=== PATIENT | female | born 1985 | race Caucasian/White ===

== ENCOUNTER 2024-06-16 16:17 | Emergency (ER) | payer OTHER, SELFPAY ==
--- NOTE | ~2024-06-16 | XR_ITS ---
EXAM: XR ankle RT min 3V, XR foot RT min 3V, XR foot LT min 3V, XR ankle LT min 3V DATE: 06/16/2024 16:52 HISTORY: Twist . COMPARISON: None available. FINDINGS: Normal mineralization. No fracture or dislocation. No lytic or blastic lesion. Joint space s are maintained. Mild plantar enthesopathy on the right. Minimal Achilles enthesopathy on the left. No erosion or periosteal change. Soft tissues within normal limits. IMPRESSION: No acute osseous finding in the bilateral ankles or feet. Reviewed, dictated and finalized at location K. IMPRESSION: No acute osseous finding in the bilateral ankles or feet. IMPRESSION: No acute osseous finding in the bilateral ankles or feet. IMPRESSION: No acute osseous finding in the bilateral ankles or feet.
--- OUTSIDE RECORDS SUMMARY | 2024-06-16 16:19 | XMS_ITS | Encounter Summary ---
Author Organization [facility] Address [address] [place] [address] Care Team Providers Care Erco Machine Operator Name Role Phone Mahogany Singh Primary Care Provider +1 [phone] Encounter Details Date Type Department Care Team (Late st Contact Info) Description 11/07/2023 SalesPortalt Message Enc [facility] Medical Group Family & Internal Medicine [facility] [address] [place] [address] Mahogany Singh APNP [address], [place] [phone] Anxiety Meds Social History Tobacco Use Types Packs/Day Years Used Date Smoking Tobacco: Never Smokeless Tobacco: Never Alcohol Use Standard Drinks/Week Comments Yes 0 (1 standard drink = 0.6 oz pur e alcohol) 0-1 times per month PHQ-2 Answer Date Recorded Patient Health Questionnaire-2 Score 0 11/01/2023 Comments No Sex and Gender Information Value Date Recorded Sex Assigned at Female 03/29/2024 8:51 AM ELECTRIC TRUCKER Legal Sex Female 6:12 PM CDT Gender Identity Not on file Sexual Orientation Not on file documented as of this encounter Progress Notes * MCKINLEY Thomason - 11/07/2023 12:49 PM CDT Sertraline sent over See me in one month * THELMA Ortiz - 11/07/2023 11:36 AM CDTFrom: Kristin Conner To: Mahogany Singh Sent: 11/07/2023 8:24 AM CDT Subject: Anxiety Meds Hi, I was prescribed Wellbutrin but thought more about it and would like to try Sertraline if that was an option for me with my current medications. I have not started taking the Wellbutrin yet. Thank you! documented in this encounter Plan of Treatment Upcoming Encounters Date Type Department Care Team (Late st Contact Info) Description 06/27/2024 9:40 AM CDT Office Visit [facility] Medical Group Family & Internal Medicine - [address] [address] Mahogany Singh APNP [address] [place] [address] documented as of this encounter Visit Diagnoses Diagnosis Anxiety- Primary Anxiety state, unspecified documented in this encounter Additional Health Concerns Assessment Noted Time PHQ-9 Depression Total Score: 0 01/19/20 7:40 AM ELECTRIC TRUCKER documented as of this encounter Care Teams Erco Machine Operator Relationship Specialty Start Date End Date Mahogany Singh APNP [address] [place] [address] PCP - General 01/15/23 documented as of this encounter
--- OUTSIDE RECORDS SUMMARY | 2024-06-16 16:19 | XMS_ITS | Clinical Summary ---
Author Organization [facility] Care Team Providers Care Animal Behaviourist Name Role Phone Unavailable Primary Care Provider Unavailabl e Social History Tobacco Use Types Packs/Day Years Used Date Smoking Tobacco: Never Assessed Comments Unknown Sex and Gender Information Value Date Recorded Sex Assigned at Not on file Legal Sex Female 12:44 PM PEDIATRIC SURGEON Gender Identity Not on file Sexual Orientation Not on file Plan of Treatment Health Maintenance Due Date Last Done Comments Hepatitis C Virus (HCV) Screening 1987 Hepatitis B Immunization (1 of 3 - 19+ 3-dose series) 06/04/2006 Pap Smear 06/04/2008 Cervical Cancer Screening (CCS) 06/04/2017 HPV/Cotest 06/04/2017 Influenza Immunization (#1) 11/05/202301/05, 12/13/2019, 12/07/2018, Additional history exists SARS-COV-2 Immunization (2023- season) 2023 09/28/2020, 09/04/2020 Respiratory Syncytial Virus (RSV) Immunization (Adult) (1 - 1-dose 75+ series) 06/04/2062 DTaP/Tdap/Td Immunization Discontinued 05/15/2014 TdaP Immunization Completed 05/15/2014 Meningococcal Immunization (ACWY) Aged Out No longer eligible based on patient's age to complete this topic Pneumococcal Immunization Combined Aged Out No longer eligible based on patient's age to complete this topic Rotavirus Immunization Aged Out No lo nger eligible based on patient's age to complete this topic
--- OUTSIDE RECORDS SUMMARY | 2024-06-16 16:19 | XMS_ITS | Clinical Summary ---
Author Organization [facility] Address [facility] [place] [address] Care Team Providers Care Driver Retraining Instructor Name Role Phone Mahogany Singh Primary Care Provider +1 [phone] Allergies No known active allergies Medications ISIBLOOM 0.15-30 MG-MCG tabletIndications :Dysmenorrhea Take 1 tablet by mouth daily. 84 tablet 1 02/02/20 23 Active ciclopirox (PENLAC) 8 % solution 10/24/19 24 Active UBRELVY 100 MG tabletIndications :Intractable migraine without aura and without status migrainosus Take 1 tablet (100 mg total) by mouth 2 (two) times daily as needed. 10 tablet 3 03/29/19 25 Active DRYSOL 20 % external solution APPLY TOPICALLY TO THE AFFECTED AREA AT BEDTIME FOR EXCESSIVE SWEATING 11/24/19 24 Active triamcinolone (KENALOG) 0.1 % creamIndications: Flexural eczema Apply topically 2 (two) times daily. 45 g 1 03/29/19 25 Active atogepant (QULIPTA) tabletIndications :Intractable migraine without aura and without status migrainosus Take 1 tablet (10 mg total) by mouth daily. 90 tablet 1 03/29/19 25 Active topiramate (TOPAMAX) 50 MG TabIndications:In tractable migraine without aura and without status migrainosus TAKE 1 TABLET(50 MG) BY MOUTH TWICE DAILY 180 tablet 1 04/23/19 25 Active sertraline (ZOLOFT) 50 MG tabletIndications :Anxiety Take one and one half tablets once daily 135 tablet 1 04/26/19 25 Active rosuvastatin (CRESTOR) 10 MG tabletIndications :Mixed hyperlipidemia TAKE 1 TABLET(10 MG) BY MOUTH EVERY NIGHT AT BEDTIME 90 tablet 05/22/19 25 Active rosuvastatin (CRESTOR) 10 MG tabletIndications :Mixed hyperlipidemia TAKE 1 TABLET(10 MG) BY MOUTH EVERY NIGHT AT BEDTIME 90 tablet 02/22/20 24 025 Discontinued butalbital-acetam inophen-caffeine (ESGIC) 50-325-40 MG tabletIndications :Chronic tension-type headache, intractable Take 1 tablet by mouth every 4 (four) hours as needed for Pain. 30 tablet 05/11/19 25 025 Active Problems Problem Noted Date Diagnosed Date Intractable migraine without aura and without status migrainosus 01/18/2023 Mixed hyperlipidemia 01/18/2023 Vitamin D deficiency 01/18/2023 Hyperhidrosis of palms and soles 01/18/2023 Encounters Date Type Department Care Team Description 05/10/2024 9:20 AM SKETCH MAKER Telemedicine [facility] Family & Internal [address] [address] Mahogany Singh APNP Migraine 05/10/2024 Travel 05/08/2024 Rallywarehart Message Enc [facility] Internal [address] [address] Mahogany Singh APNP Change 05/10 in-person appt to virtual 04/01/2024 Telephone [facility] Internal [address] [address] Mahogany Singh APNP Prior Authorization (Qulipta 10 mg tablets) 03/29/2024 8:40 AM SKETCH MAKER Office Visit [facility] Internal [address] [address] Mahogany Singh APNP Anxiety 03/29/2024 Travel from Last 3 Months Immunizations Immunization Administration Dates Next Due Fluzone (IIV3, Trivalent, 0. 5 ML Prefilled Syringe) 12/13/2023 Influenza (Generic) 01/10/2014 Influenza Adult (Generic) 11/20/2022,,01/25/2021,2019,12/07/2018 Tdap (Generic) 05/15/2014 Family History Medical History Relation Comments Kidney Disease Father Kidney Stones (t wice) Heart Disease Maternal Grandfather Heart Disease Maternal Grandmother Stroke Maternal Grandmother Heart Disease Paternal Grandfather Stroke Paternal Grandfather Cancer Paternal Grandmother sinus/nasal Hypertension Paternal Grandmother Relation Status Comments Father Maternal Grandfather Maternal Grandmother Paternal Grandfather Paternal Grandmother Social History Tobacco Use Types Packs/Day Years Used Date Smoking Tobacco: Never Smokeless Tobacco: Never Tobacco Cessation:Counseling Given: No Alcohol Use Standard Drinks/Week Comments Yes 0 (1 standard drink = 0.6 oz pur e alcohol) 0-1 times per month PHQ-2 Answer Date Recorded Patient Health Questionnaire-2 Score 0 03/29/2024 Comments No Sex and Gender Information Value Date Recorded Sex Assigned at Female 03/29/2024 8:51 AM SKETCH MAKER Legal Sex Female 6:12 PM CDT Gender Identity Not on file Sexual Orientation Not on file Last Filed Vital Signs Vital Sign Reading Time Taken Comments Blood Pressure 106/70 03/29/2024 8:49 AM SKETCH MAKER Pulse 82 03/29/2024 8:49 AM SKETCH MAKER Temperature 36.7 C (98 F) 03/29/2024 8:49 AM SKETCH MAKER Respiratory Rate 16 03/29/2024 8:49 AM SKETCH MAKER Oxygen Saturation 98% 03/29/2024 8:49 AM SKETCH MAKER Inhaled Oxygen Concentration - - Weight 88.2 kg (194 lb 6.4 oz) 03/29/2024 8:49 A M SKETCH MAKER Height 165.1 cm (5' 5 ) 03/29/2024 8:49 AM SKETCH MAKER Body Mass Index 32.35 03/29/2024 8:49 AM SKETCH MAKER Plan of Treatment Upcoming Encounters Date Type Department Care Team (Late st Contact Info) Description 06/27/2024 9:40 AM CDT Office Visit [facility] Medical Group Family & Internal Medicine - [address] [phone] Mahogany Singh, MCKINLEY [address] [place] [address] Health Maintenance Due Date Last Done Comments Cervical Cancer Screening Pap Smear (Age 30 to 64) Every 3 Years 1987 Annual Physical 06/04/1990 Hepatitis C 06/04/2005 Hepatitis B Vaccines (1 of 3 - 19+ 3-dose series) 06/04/2006 Cervical Cancer Screening Pap with HPV Testing (Age 30 to 64) Every 5 Years 06/04/2017 DTaP, Tdap and Td Vaccines (2 - Td or Tdap) 05/15/2024 05/15/2014 Cervical Cancer Screening with HPV 03/29/2025 Postponed from 06/04/2017 (Going to Outside Clinic) COVID-19 Vaccine Completed 12/23/2023, 12/2021, 06/25/2021, Additional history exists PHQ-2 (Physician [place]) Completed 03/29/2024 HPV Vaccines Aged Out No longer eligi ble based on patient's age to complete this topic Meningococcal B Vaccine Aged Out No l onger eligible based on patient's age to complete this topic Meningococcal Vaccine Aged Out No guy ernesto eligible based on patient's age to complete this topic Pneumococcal Vaccine: Pediatrics (0 to 5 Years) and At-Risk Patients (6 to 49 Years) Aged Out No longer eligible based on patient's age to complete this topic RSV Immunizations Under 20 Months Aged Out No longer eligible based on patient's age to complete this topic Insurance [facility] Care Teams Driver Retraining Instructor Relationship Specialty Start Date End Date Mahogany Singh APNP [address] [place] [address] PCP - General 01/15/23
--- NOTE | 2024-06-16 16:24 | ED_ITS ---
HPI - Extremity Injury (Lower) General Chief Complaint: Extremity Injury, Lower Stated Complaint: Injury to both ankles-missed a step/Fall Time Seen by Provider: 06/16/24 16:23 Source: patient Mode of arrival: ambulatory Limitations: no limitations History of Present Illness HPI Narrative: 39 years old white female missed a step going down stairs, rolled both ankles, causing her to fall down, she denies other injury, complaining of right lateral ankle pain and lateral foot pain, left ankle pain and foot pain. Related Data Home Medications ?Medication ?Instructions ?Recorded ?Confirmed ?Last Taken ?Type desogestrel 0.15 mg-ethinyl 1 tablet PO DAILY 08/26/20 10/13/22 Unknown History estradiol 0.03 mg tablet cholecalciferol (vitamin D3) 250 250 mcg PO WEEKLY 11/12/20 10/13/22 Unknown History mcg (10,000 unit) capsule Allergies Allergy/AdvReac Type Severity Reaction Status Date / Time rizatriptan AdvReac Intermediate Rash Uncoded 06/16/24 16:34 Review of Systems Review of Systems: All systems reviewed & are unremarkable except as noted in HPI and below PMFSH Past Medical History Medical History URI, acute Stress at work Right hand pain PND (post-nasal drip) Onychomycosis of toenail Onycholysis Laryngitis Intractable chronic cluster headache Dysfunction of both eustachian tubes Cellulitis of foot, left Cellulitis of foot Carpal tunnel syndrome of right wrist Bitten or stung by nonvenomous insect and other nonvenomous arthropods, initial encounter Acute pharyngitis, unspecified Elevated liver enzymes Eczema of external ear Lipid screening Migraine without aura Skin lesion Common wart Family History Family History Other Cerebrovascular accident Family history of malignant neoplasm Hyperlipidemia Social History Social History Social History: Smoking status: Never smoker Second hand tobacco smoke exposure: No Alcohol intake: never Substance use: never Substance use type: does not use Lack of Transportation: No Lack of Food: Never True Current Housing: I Have Housing Concerned About Future Housing: No Difficulty Paying Gas/Electric Bills: No Difficulty Paying for Meds: No Currently Unemployed: No Education: Decline to Answer Difficulty w/ Childcare or Family Care: No Living arrangements: with family Occupation/Education: occupation Gender identity (if verbalized by the patient): Female Sexual Orientation (if Verbalized by the Patient): Straight or Heterosexual Exam Narrative: General appearance: Well-developed, well-nourished Skin: Normal color Head: Normocephalic, nontraumatic Eyes: Clear conjunctiva ENT: Oropharynx normal, ears normal, nose normal Neck: Supple, nontender Chest and respiratory: Airway patent, no respiratory distress, no accessory muscle use Heart: Regular rate/rhythm Abdomen: Soft, nontender, no organomegaly, quiet bowel sounds Vascular: Normal peripheral pulses, normal capillary refill. Musculoskeletal: Right ankle showed mild diffuse tenderness no laterally, right foot slight tenderness laterally, no deformity, slight swelling. Left ankle showed no deformity, no swelling slight limited range of motion, left foot showed no localized tenderness or swelling or deformity Neurologic: Alert and oriented ?3, BIOLOGICAL SCIENCE TECHNICIAN is normal as tested, no gross motor deficit Course Vital Signs Vital signs: Vital Signs Temperature 36.7 C 06/16/24 16:29 Pulse Rate 73 06/16/24 16:29 Respiratory Rate 16 06/16/24 16:29 Blood Pressure 103/74 06/16/24 16:29 Pulse Oximetry 99 06/16/24 16:29 Oxygen Delivery Room Air 06/16/24 16:29 Temperature 36.7 C 06/16/24 16:29 Pulse Rate 73 06/16/24 16:29 Respiratory Rate 16 06/16/24 16:29 Blood Pressure 103/74 06/16/24 16:29 Pulse Oximetry 99 06/16/24 16:29 Oxygen Delivery Room Air 06/16/24 16:29 MDM - Extremity Injury (Lower) MDM Narrative Medical decision making narrative: Patient had a fall Differential diagnosis including fracture versus strain/sprain X-ray of the right ankle/foot showed no acute osseous abnormal X-ray of the left ankle/foot showed no acute osseous abnormality Diagnosis ankle sprain/strain, discharged on Tylenol, ibuprofen as needed, crutches, Navin wrap Differential Diagnosis Differential diagnosis: Likely ankle sprain and strain, ankle fracture and other Imaging Data Radiologist's impression: Impressions Ankle X-Ray 06/16/24 17:43 IMPRESSION: No acute osseous finding in the bilateral ankles or feet. Ankle X-Ray 06/16/24 17:43 IMPRESSION: No acute osseous finding in the bilateral ankles or feet. Foot X-Ray 06/16/24 17:43 IMPRESSION: No acute osseous finding in the bilateral ankles or feet. Foot X-Ray 06/16/24 17:43 IMPRESSION: No acute osseous finding in the bilateral ankles or feet. Critical Care Time Critical Care Time Critical Care Time: No Discharge Plan Discharge Clinical Impression: Ankle sprain Patient Disposition: Home Condition: Stable Instructions: Ankle Sprain (DC) Additional Instructions: Return if symptoms are worsening , call your family physician for appointment, take Tylenol ibuprofen as as needed for aches and pain, continue home medications. Ice pack 20 minutes/hour for the next 24 hours Crutches as needed Keep foot elevated Get [id number] ankle splint for support Patient Language: Cymraes Prescriptions: No Action desogestrel-ethinyl estradiol 0.15-0.03 mg tablet 1 tablet PO DAILY cholecalciferol (vitamin D3) 250 mcg (10,000 unit) capsule 250 mcg PO WEEKLY hydroxyzine HCl 25 mg tablet 25 mg PO BID PRN (Reason: anxiety) Qty: 60 0RF Ubrelvy 100 mg tablet See Rx Instructions .ROUTE .COMPLEX Qty: 10 2RF Dose Instruction: TAKE 1 TABLET BY MOUTH AT MIGRAINE ONSET, MAY REPEAT IN 2 HOURS IF NEEDED Rx Instructions: TAKE 1 TABLET BY MOUTH AT MIGRAINE ONSET, MAY REPEAT IN 2 HOURS IF NEEDED topiramate 50 mg tablet See Rx Instructions .ROUTE .COMPLEX Qty: 180 0RF Dose Instruction: TAKE 1 TABLET BY MOUTH TWICE DAILY Rx Instructions: TAKE 1 TABLET BY MOUTH TWICE DAILY rosuvastatin 5 mg tablet See Rx Instructions .ROUTE .COMPLEX Qty: 90 0RF Dose Instruction: TAKE 1 TABLET BY MOUTH DAILY Rx Instructions: TAKE 1 TABLET BY MOUTH DAILY Follow-up/Referrals: Sabrina Hooks MD [Physician] -
[2024-06-16 16:28] VITALS: BP 114/74; PULSE 80; RESP 14; O2SAT 99
[2024-06-16 16:29] VITALS: BP 103/74; PULSE 73; RESP 16; TEMP 36.7; O2SAT 99
[2024-06-16 16:46] VITALS: BP 114/84; PULSE 79; RESP 16; O2SAT 100
--- OUTSIDE RECORDS SUMMARY | 2024-06-16 16:57 | XMS_ITS | Clinical Summary ---
Author Organization [facility] Care Team Providers Care Public Health Professor Name Role Phone Unavailable Primary Care Provider Unavailabl e Social History Tobacco Use Types Packs/Day Years Used Date Smoking Tobacco: Never Assessed Comments Unknown Sex and Gender Information Value Date Recorded Sex Assigned at Not on file Legal Sex Female 12:44 PM HOSPICE RN Gender Identity Not on file Sexual Orientation [...]
--- OUTSIDE RECORDS SUMMARY | 2024-06-16 16:57 | XMS_ITS | Clinical Summary ---
Author Organization [facility] Address [facility] [place] [address] Care Team Providers Care Fbi Field Agent Name Role Phone Mahogany Singh Primary Care Provider +1 [phone] Allergies No known active allergies Medications ISIBLOOM [...] Department Care Team Description 05/10/2024 9:20 AM COMMUNITY AFFAIRS MANAGER Telemedicine [facility] Family & Internal [address] [address] Mahogany Singh APNP Migraine 05/10/2024 Travel 05/08/2024 Avosofthart Message Enc [facility] Internal [address] [address] Mahogany Singh APNP Change 05/10 in-person appt to virtual 04/01/2024 Telephone [facility] Internal [address] [address] Mahogany Singh APNP Prior Authorization (Qulipta 10 mg tablets) 03/29/2024 8:40 AM COMMUNITY AFFAIRS MANAGER Office Visit [facility] Internal [address] [address] Mahogany Singh APNP Anxiety 03/29/2024 Travel from [...] Sex Assigned at Female 03/29/2024 8:51 AM COMMUNITY AFFAIRS MANAGER Legal Sex Female 6:12 PM CDT Gender Identity Not on file Sexual Orientation Not on file Last Filed Vital Signs Vital Sign Reading Time Taken Comments Blood Pressure 106/70 03/29/2024 8:49 AM COMMUNITY AFFAIRS MANAGER Pulse 82 03/29/2024 8:49 AM COMMUNITY AFFAIRS MANAGER Temperature 36.7 C (98 F) 03/29/2024 8:49 AM COMMUNITY AFFAIRS MANAGER Respiratory Rate 16 03/29/2024 8:49 AM COMMUNITY AFFAIRS MANAGER Oxygen Saturation 98% 03/29/2024 8:49 AM COMMUNITY AFFAIRS MANAGER Inhaled Oxygen Concentration - - Weight 88.2 kg (194 lb 6.4 oz) 03/29/2024 8:49 A M COMMUNITY AFFAIRS MANAGER Height 165.1 cm (5' 5 ) 03/29/2024 8:49 AM COMMUNITY AFFAIRS MANAGER Body Mass Index 32.35 03/29/2024 8:49 AM COMMUNITY AFFAIRS MANAGER Plan of Treatment Upcoming Encounters Date Type Department Care Team (Late st Contact Info) Description 06/27/2024 9:40 AM CDT Office Visit [facility] Medical Group Family & Internal Medicine - [address] [phone] Mahogany Singh, MCKINLEY [address] [place] [address] Health Maintenance Due Date Last Done Comments [...] 12/2021, 06/25/2021, Additional history exists PHQ-2 (Physician [place]) Completed 03/29/2024 HPV Vaccines Aged Out No [...] age to complete this topic Insurance [facility] Care Teams Fbi Field Agent Relationship Specialty Start Date End Date Mahogany Singh APNP [address] [place] [id number] PCP - General 01/15/23
--- OUTSIDE RECORDS SUMMARY | 2024-06-16 16:57 | XMS_ITS | Encounter Summary ---
Author Organization [facility] Address [address] [place] [address] Care Team Providers Care Cooker Chip Name Role Phone Mahogany Singh Primary Care Provider +1 [phone] Encounter Details Date Type Department Care Team (Late st Contact Info) Description 11/07/2023 TopBlipt Message Enc [facility] Medical Group Family [facility] [address] [place] [address] Mahogany Singh APNP [address] [place], [place] [phone] Anxiety Meds Social History Tobacco Use Types Packs/Day Years Used Date Smoking Tobacco: Never Smokeless Tobacco: Never Alcohol Use Standard Drinks/Week Comments Yes 0 (1 standard drink = 0.6 oz pur e alcohol) 0-1 times per month PHQ-2 Answer Date Recorded Patient Health Questionnaire-2 Score 0 11/01/2023 Comments No Sex and Gender Information Value Date Recorded Sex Assigned at Female 03/29/2024 8:51 AM ANESTHETIC ASSISTANT Legal Sex Female 6:12 PM CDT Gender [...] Description 06/27/2024 9:40 AM CDT Office Visit [facility] Medical Group Family & Internal Medicine - [address] [address] Mahogany Singh APNP [address] [place] [address] documented as of this encounter Visit Diagnoses Diagnosis Anxiety- Primary Anxiety state, unspecified documented in this encounter Additional Health Concerns Assessment Noted Time PHQ-9 Depression Total Score: 0 01/19/20 7:40 AM ANESTHETIC ASSISTANT documented as of this encounter Care Teams Cooker Chip Relationship Specialty Start Date End Date Mahogany Singh APNP [address] [place] [address] PCP - General 01/15/23 documented as of this encounter
[2024-06-16] MEDS: IBUPROFEN 600 MG TABLET PO (17:05)
[2024-06-16] MEDS: HYDROcodone/acetaminophen (*CRX) 5-325 MG TABLET 1 TAB PO (17:05)
[2024-06-16 17:31] VITALS: BP 106/86; PULSE 86; RESP 14; O2SAT 93
[2024-06-16 18:05] VITALS: BP 112/79; PULSE 75; RESP 18; O2SAT 96
== END 2024-06-16 18:07 | disposition home or self-care (01) ==
PROVIDERS: Emergency Provider Emergency Medicine; PCP Registered Nurse
DX: S93.402A Sprain of unspecified ligament of left ankle, initial encounter (principal); S93.401A Sprain of unspecified ligament of right ankle, initial encounter; Z79.899 Other long term (current) drug therapy; W10.9XXA Fall (on) (from) unspecified stairs and steps, initial encounter
CPT/HCPCS: 73610; 73630; 99284; A9270